=== PATIENT | male | born 1970 ===

== ENCOUNTER → 2018-08-19 | Outpatient (CLI) | payer BC ==
[~2018-08-19] MED LIST: ASCO500; CIPR500 PO; DIVA250EC; FISH1000; LITH300C; METPHE10; METR500 PO; OXYACE5T PO; PROM25 PO
== END | disposition home or self-care (01) ==
LOC: LAB SHORT 08:08 → PLD 08:08
DX: D48.5 Neoplasm of uncertain behavior of skin (principal)
CPT/HCPCS: 88305